=== PATIENT | male | born 1970 | race Caucasian/White ===

== ENCOUNTER 2017-07-01 15:52 | Emergency (ER) | payer MEDICAID, MEDICARE ==
--- NOTE | 2017-07-01 16:06 | EDM.PDOC ---
ED HPI GENERAL MEDICAL PROBLEM - General Stated Complaint: LT EYE SWOLLEN Time Seen by Provider: 07/01/17 15:52 Source of Information: Reports: Patient History Limitations: Reports: No Limitations - History of Present Illness INITIAL COMMENTS - FREE TEXT/NARRATIVE: 47 y.o.w.m came to the ed 2 days after he noticed a small skin lesion at his left prox nostril. He squeezed on it and found out this morning his left forehead he swollen and red. EOMI, minor discomfort only. No N/V/D or any other acute discomfort. BP 136/95 temp 36.8 RR 16 Pulse 78 Pulse ox 98% Onset Date: 06/29/17 Onset Time: 07:00 Duration: Day(s):, Getting Worse, Intermittent Location: Reports: Face Quality: Reports: Ache Severity: Mild Improves with: Reports: Rest Worsens with: Reports: Movement Context: Reports: Other (redness around left eye) Associated Symptoms: Reports: No Other Symptoms Nose Pain Score (Numeric/FACES): 8 - Related Data Allergies Allergy/AdvReac Type Severity Reaction Status Date / Time No Known Allergies Allergy Verified 07/01/17 16:27 Home Meds: Home Meds Cephalexin [Keflex] 500 mg PO Q6H #40 cap 07/01/17 [Rx] Past Medical History Neurological History: Reports: Migraines Psychiatric History: Reports: PTSD Social & Family History - Tobacco Use Smoking Status *Q: Current Every Day Smoker Years of Tobacco use: 18 Packs/Tins Daily: 1 - Alcohol Use Days Per Week of Alcohol Use: 2 Number of Drinks Per Day: 4 Total Drinks Per Week: 8 - Recreational Drug Use Recreational Drug Use: No ED ROS GENERAL - Review of Systems Review Of Systems: See Below Constitutional: Reports: No Symptoms HEENT: Reports: No Symptoms Respiratory: Reports: No Symptoms Cardiovascular: Reports: No Symptoms Endocrine: Reports: No Symptoms GI/Abdominal: Reports: No Symptoms : Reports: No Symptoms Musculoskeletal: Reports: No Symptoms Skin: Reports: Rash (left face) Neurological: Reports: No Symptoms Psychiatric: Reports: No Symptoms Hematologic/Lymphatic: Reports: No Symptoms Immunologic: Reports: No Symptoms ED EXAM, SKIN/RASH Exam: See Below Exam Limited By: No Limitations General Appearance: Alert, WD/WN, No Apparent Distress Eye Exam: Bilateral Eye: EOMI, Normal Inspection Ears: Normal External Exam, Normal Canal Nose: Normal Inspection, Normal Mucosa, No Blood Throat/Mouth: Normal Inspection, Normal Lips Head: Atraumatic, Normocephalic Neck: Normal Inspection, Supple, Non-Tender, Full Range of Motion Respiratory/Chest: No Respiratory Distress, Lungs Clear, Normal Breath Sounds Cardiovascular: Normal Peripheral Pulses, Regular Rate, Rhythm, No Edema GI/Abdominal: Normal Bowel Sounds, Soft, Non-Tender, No Organomegaly, No Abnormal Bruit (Male) Exam: Deferred Rectal (Males) Exam: Deferred Back Exam: Normal Inspection, Full Range of Motion Extremities: Normal Inspection, Normal Range of Motion, Non-Tender, No Pedal Edema Neurological: Alert, Oriented, CN II-XII Intact, Normal Cognition, Normal Gait, No Motor/Sensory Deficits Psychiatric: Normal Affect, Normal Mood Skin: Erythema Location, Skin: Face (left, periorbital) Characteristics: Confluent Associated features: Warmth Lymphatic: No Adenopathy Course - Vital Signs Text/Narrative:: 47 y.o.w.m came to the ed 2 days after he noticed a small skin lesion at his left prox nostril. He squeezed on it and found out this morning his left forehead he swollen and red. EOMI, minor discomfort only. No N/V/D or any other acute discomfort. BP 136/95 temp 36.8 RR 16 Pulse 78 Pulse ox 98%, TD checked PE: Left sided alcon orbital cellulitis Impression: Left sided alocn orbital cellulitis Tx: Keflex, prescription, refused pain meds Reexam: Improved Plan: D/C with instruction Last Recorded V/S: Last Vital Signs Temp 36.9 C 07/01/17 16:10 Pulse 88 07/01/17 16:10 Resp 16 07/01/17 16:10 BP 136/95 H 07/01/17 16:10 Pulse Ox 98 07/01/17 16:10 Departure - Departure Time of Disposition: 16:02 Disposition: Home, Self-Care 01 Condition: Good Clinical Impression: Periorbital cellulitis of left eye - Discharge Information Prescriptions: Cephalexin [Keflex] 500 mg PO Q6H #40 cap Instructions: Cellulitis, Adult Referrals: PCP,None [Primary Care Provider] - Forms: ED Department Discharge Additional Instructions: Please keep your face clean with soap and water, please take the Abx as recommended, please f/u, come back if your symptoms get worse acutely.
[2017-07-01 16:27] VITALS: BP 136/95
== END 2017-07-01 16:19 | disposition home or self-care (01) ==
LOC: FB.ED 15:52
DX: L03.213 Periorbital cellulitis (principal); F17.210 Nicotine dependence, cigarettes, uncomplicated
CPT/HCPCS: 99283

== ENCOUNTER 2020-03-27 17:38 | Emergency (ER) | payer MEDICAID ==
[2020-03-27] MEDS ORDERED: Aspirin 81 MG Tab.Chew PO ONE (17:44)
[2020-03-27] MEDS ORDERED: Ketorolac 30 MG/ML SDV IM STA (18:04)
[2020-03-27] MEDS ORDERED: Cyclobenzaprine 10 MG Tab PO ONE (18:04)
[2020-03-27 18:08] VITALS: PULSE 90
--- NOTE | 2020-03-27 18:42 | EDM.PDOC ---
ED HPI GENERAL MEDICAL PROBLEM - General Chief Complaint: Chest Pain Stated Complaint: CHEST PAIN Time Seen by Provider: 03/27/20 18:05 Source of Information: Reports: Patient History Limitations: Reports: No Limitations - History of Present Illness INITIAL COMMENTS - FREE TEXT/NARRATIVE: Patient presented to the ED because of chest pain which started at 1645 while patient was eating burger [employer] car. The pain is sharp, 9/10, worse with breathing and movements. Denies any dypnea,nausea,vomiting, or diaphoresis. never had chest pain before and said that he is otherwise healthy. Left sided back and rib Pain Score (Numeric/FACES): 9 - Related Data Allergies Allergy/AdvReac Type Severity Reaction Status Date / Time No Known Allergies Allergy Verified 07/01/17 16:27 Home Meds: Home Meds NK [No Known Home Meds] 03/27/20 [History] Past Medical History - Past Health History Medical/Surgical History: Denies Medical/Surgical History HEENT History: Reports: Impaired Vision Neurological History: Reports: Migraines Psychiatric History: Reports: PTSD Social & Family History - Family History Family Medical History: Noncontributory - Tobacco Use Tobacco Use Status *Q: Current Every Day Tobacco User Years of Tobacco use: 30 Packs/Tins Daily: 0.5 - Caffeine Use Caffeine Use: Reports: Soda - Alcohol Use Days Per Week of Alcohol Use: 1 Number of Drinks Per Day: 4 Total Drinks Per Week: 4 - Recreational Drug Use Recreational Drug Use: Yes Recreational Drug Type: Reports: Marijuana/Hashish Recreational Drug Use Frequency: Daily ED ROS GENERAL - Review of Systems Review Of Systems: See Below Constitutional: Reports: No Symptoms HEENT: Reports: No Symptoms Respiratory: Reports: No Symptoms Cardiovascular: Reports: Chest Pain Endocrine: Reports: No Symptoms GI/Abdominal: Reports: No Symptoms : Reports: No Symptoms Musculoskeletal: Reports: No Symptoms Skin: Reports: No Symptoms Neurological: Reports: No Symptoms Psychiatric: Reports: No Symptoms ED EXAM, GENERAL - Physical Exam Exam: See Below Exam Limited By: No Limitations General Appearance: Alert, No Apparent Distress Nose: Normal Inspection, Normal Mucosa, No Blood Throat/Mouth: Normal Inspection, Normal Lips, Normal Teeth Head: Atraumatic, Normocephalic Neck: Normal Inspection, Supple, Non-Tender, Full Range of Motion Respiratory/Chest: No Respiratory Distress, Lungs Clear, Normal Breath Sounds Cardiovascular: Normal Peripheral Pulses, Regular Rate, Rhythm, No Edema, No Gallop GI/Abdominal: Normal Bowel Sounds, Soft, Non-Tender, No Organomegaly Back Exam: Normal Inspection, Full Range of Motion Extremities: Normal Inspection, Normal Range of Motion, Non-Tender Neurological: Alert, Oriented, CN II-XII Intact Course - Vital Signs Text/Narrative:: Labs/CXR,Ekg was discussed with patient ASA 324 mg po x1 Toradol 60 mg IM x1 Flexeril 10 mg po x1 Last Recorded V/S: Last Vital Signs Temp 36.7 C 03/27/20 18:00 Pulse 90 03/27/20 18:00 Resp 18 03/27/20 18:00 BP 149/99 H 03/27/20 19:00 Pulse Ox 94 L 03/27/20 18:00 - Orders/Labs/Meds Labs: Laboratory Tests 03/27/20 03/27/20 03/27/20 Range/Units 18:15 18:15 18:15 WBC 8.8 (4.5-12.0) X10-3/uL RBC 5.23 (4.30-5.75) x10(6)uL Hgb 16.9 (13.5-17.8) g/dL Hct 50.0 (30.0-51.3) % MCV 95.8 (80-96) fL MCH 32.3 (27.7-33.6) pg MCHC 33.7 (32.2-35.4) g/dL RDW 12.6 (11.5-15.5) % Plt Count 317 (125-369) X10(3)uL MPV 7.9 (7.4-10.4) fL Neut % (Auto) 68.5 (46-82) % Lymph % (Auto) 22.8 (13-37) % [place] % (Auto) 5.7 (4-12) % Eos % (Auto) 2 (1.0-5.0) % Baso % (Auto) 1 (0-2) % Neut # (Auto) 6.0 (1.6-8.3) # Lymph # (Auto) 2.0 (0.6-5.0) # [place] # (Auto) 0.5 (0.0-1.3) # Eos # (Auto) 0.2 (0.0-0.8) # Baso # (Auto) 0.1 (0.0-0.2) # D-Dimer, Quantitative (0.0-0.59) mg/LFEU Sodium 140 (135-145) mmol/L Potassium 4.2 (3.5-5.3) mmol/L Chloride 103 (100-110) mmol/L Carbon Dioxide 30 (21-32) mmol/L BUN 7 (7-18) mg/dL Creatinine 1.0 (0.70-1.30) mg/dL Est Cr Clr Drug Dosing 85.50 mL/min Estimated GFR (MDRD) > 60 (>60) BUN/Creatinine Ratio 7.0 L (9-20) Glucose 125 H (80-116) mg/dL Calcium 9.3 (8.6-10.2) mg/dL Total Bilirubin 1.0 (0.1-1.3) mg/dL AST 44 H (5-25) IU/L ALT 66 H (12-36) U/L Alkaline Phosphatase 107 (56-112) IU/L Troponin I < 4.0 L (4.0-60.3) pg/mL Total Protein 7.7 (6.0-8.0) g/dL Albumin 3.8 (3.5-5.2) g/dL Globulin 3.9 g/dL Albumin/Globulin Ratio 1.0 10/16/20 Range/Units 18:15 WBC (4.5-12.0) X10-3/uL RBC (4.30-5.75) x10(6)uL Hgb (13.5-17.8) g/dL Hct (30.0-51.3) % MCV (80-96) fL MCH (27.7-33.6) pg MCHC (32.2-35.4) g/dL RDW (11.5-15.5) % Plt Count (125-369) X10(3)uL MPV (7.4-10.4) fL Neut % (Auto) (46-82) % Lymph % (Auto) (13-37) % [place] % (Auto) (4-12) % Eos % (Auto) (1.0-5.0) % Baso % (Auto) (0-2) % Neut # (Auto) (1.6-8.3) # Lymph # (Auto) (0.6-5.0) # [place] # (Auto) (0.0-1.3) # Eos # (Auto) (0.0-0.8) # Baso # (Auto) (0.0-0.2) # D-Dimer, Quantitative 0.45 (0.0-0.59) mg/LFEU Sodium (135-145) mmol/L Potassium (3.5-5.3) mmol/L Chloride (100-110) mmol/L Carbon Dioxide (21-32) mmol/L BUN (7-18) mg/dL Creatinine (0.70-1.30) mg/dL Est Cr Clr Drug Dosing mL/min Estimated GFR (MDRD) (>60) BUN/Creatinine Ratio (9-20) Glucose (80-116) mg/dL Calcium (8.6-10.2) mg/dL Total Bilirubin (0.1-1.3) mg/dL AST (5-25) IU/L ALT (12-36) U/L Alkaline Phosphatase (56-112) IU/L Troponin I (4.0-60.3) pg/mL Total Protein (6.0-8.0) g/dL Albumin (3.5-5.2) g/dL Globulin g/dL Albumin/Globulin Ratio Meds: Medications Discontinued Medications Generic Name Dose Route Start Last Admin Trade Name Freq PRN Reason Stop Dose Admin Aspirin 324 mg 03/27/20 17:44 03/27/20 18:10 Aspirin PO 03/27/20 17:45 324 mg ONETIME ONE Administration Cyclobenzaprine HCl 10 mg 03/27/20 18:04 03/27/20 18:10 Flexeril PO 03/27/20 18:05 10 mg ONETIME ONE Administration Ketorolac Tromethamine 60 mg 03/27/20 18:04 03/27/20 18:10 Toradol IM 03/27/20 18:05 60 mg NOW STA Administration Departure - Departure Time of Disposition: 18:40 Disposition: Home, Self-Care 01 Condition: Good Clinical Impression: Atypical chest pain - Discharge Information Referrals: PCP,None [Primary Care Provider] - Forms: ED Department Discharge Additional Instructions: Please read discharge instructions on atyoical chest pain Take ibuprofen 800 mg with tylenol 1000 mg every 8 hours as needed for pain Follow up as needed Sepsis Event Note (ED) - Evaluation Sepsis Screening Result: No Definite Risk
[2020-03-27 19:01] VITALS: BP 149/99
--- NOTE | 2020-03-27 19:09 | CR ---
INDICATION: Chest pain. CHEST, ONE VIEW: A portable AP upright view of the chest was obtained 03/27/20 - no comparison. The heart did not appear enlarged. The aorta is minimally tortuous. Overlying EKG leads are noted. An active infiltrate or effusion was not identified. IMPRESSION: No acute process. MTDD
== END 2020-03-27 18:48 | disposition home or self-care (01) ==
LOC: FB.ED 17:38
DX: R07.89 Other chest pain (principal); F17.210 Nicotine dependence, cigarettes, uncomplicated
CPT/HCPCS: 36415; 71045; 80053; 84484; 85025; 85379; 96372; 99285-25; A9270-GY; J1885